=== PATIENT | female | born 2005 | race Caucasian/White ===

== ENCOUNTER → 2024-01-12 12:43 | Outpatient (REF) | payer BC, SELFPAY | LOC: HWRCS 12:43 | PROVIDERS: ATTENDING PHYSICIAN Internal Medicine Cardiovascular Disease; FAMILY PHYSICIAN Physician Assistant Medical | DX: R55 Syncope and collapse (principal) | CPT/HCPCS: 93306 ==

== ENCOUNTER → 2025-07-11 14:48 | Outpatient (REF) | payer BC, SELFPAY | LOC: RAD 14:48 | PROVIDERS: ATTENDING PHYSICIAN Internal Medicine Rheumatology; FAMILY PHYSICIAN Physician Assistant Medical | DX: M06.4 Inflammatory polyarthropathy (principal) | CPT/HCPCS: 73502; 73564; 73600 ==